=== PATIENT | male | born 1975 | race Caucasian/White ===

== ENCOUNTER 2017-01-19 03:55 | Emergency (ER) | payer BC, OTHER ==
[2017-01-19 04:01] VITALS: BP 133/78; PULSE 59; RESP 16; TEMP 97.9; O2SAT 95
--- NOTE | 2017-01-19 04:35 | EDPHY ---
H & P Stated Complaint: left sided face pain, throat/eye/tooth pain. cough x2 weeks Time Seen by Provider: 01/19/17 04:14 HPI/ROS: Chief Complaint: Face pain HPI: 41-year-old male presenting with pain in his left upper jaw which started about 4 hours ago. It radiates up to below his eye and a little bit in his left anabaptism. Does not have a history of the same. Denies any traumatic injuries. No rashes. No vision or hearing changes. Has had some upper respiratory cold type symptoms for the last couple of weeks. Has had a mild sore throat. No fevers or chills ROS: 10 point Review of Systems is negative except as noted in the HPI. PMH: None Medications : None Allergies: No known drug allergies Social History: No smoking, rare alcohol, no recreational drug use Family History: non-contributory Physical Exam: Gen: Awake, Alert, No Distress HEENT: Face: No rash Nose: no rhinorrhea Eyes: PERRLA, EOMI Mouth: Moist mucosa mild pharyngeal erythema without exudate or edema. There is some tenderness above his left upper molars without fluctuance or pointing. Patient also has mild tenderness of his left TMJ but no trismus Neck: Supple, no JVD Back: no CVA tenderness, no midline tenderness Ext: no edema, non-tender Skin: no rash Neuro: CN II-XII intact, Sensation grossly intact, Strength 5/5 in bilateral upper and lower extremities - Personal History Current Tetanus/Diphtheria Vaccine: Unsure Current Tetanus Diphtheria and Acellular Pertussis (TDAP): Unsure - Medical/Surgical History Hx Asthma: No Hx Chronic Respiratory Disease: No Hx Diabetes: No Hx Cardiac Disease: No Hx Renal Disease: No Hx Cirrhosis: No Hx Alcoholism: No Hx HIV/AIDS: No Hx Splenectomy or Spleen Trauma: No Other PMH: denies - Social History Smoking Status: Never smoked Constitutional: Initial Vital Signs Temperature (C) 36.6 C 01/19/17 03:57 Heart Rate 59 L 01/19/17 03:57 Respiratory Rate 16 01/19/17 03:57 Blood Pressure 133/78 H 01/19/17 03:57 O2 Sat (%) 95 01/19/17 03:57 O2 Delivery Mode Room Air Allergies/Adverse Reactions: No Known Allergies Allergy (Unverified 01/19/17 04:01) Home Medications: Medication Instructions Recorded Amoxicillin 500 mg PO TID 7 Days 01/19/17 Medical Decision Making ED Course/Re-evaluation: 41-year-old male with I think an early left to use infection. Symptoms could also include temporomandibular joint disease, early shingles, maxillary sinus disease, or parotitis. There are no other findings to suggest any of these. I will start him on some antibiotics and given some analgesia. He will follow up with his dentist in 2 days for re-evaluation. Departure - Departure Disposition: Home, Routine, Self-Care Clinical Impression: Pain, dental Condition: Good Instructions: Toothache (ED) Additional Instructions: Follow up with her dentist in 2-3 days for re-evaluation. He may take hydrocodone with acetaminophen as needed for pain. You also may take ibuprofen as needed. For take her full course of antibiotics. Return to the emergency department or see her doctor if she started developing a rash on the left side of her face. Increasing pain, vision or hearing changes , or any other concerns. Referrals: NONE *PRIMARY CARE P,. [Primary Care Provider] - As per Instructions Prescriptions: Amoxicillin 500 mg PO TID 7 Days
[2017-01-19] MEDS ORDERED: HYDROCOD/APAP 5/325 PREPACK#6 BTL TAKEHOME ONE (04:37)
[2017-01-19] MEDS ORDERED: AMOXICILLIN 250 MG PREPACK#4 BTL TAKEHOME ONE (04:37)
== END 2017-01-19 04:50 | disposition home or self-care (01) ==
DX: K08.89 Other specified disorders of teeth and supporting structures (principal)